=== PATIENT | female | born 1965 | race African-American/Black ===

== ENCOUNTER 2018-12-12 05:40 | Inpatient (IN) ==
[2018-11-28 09:55] LABS: Basophils % 0.8 % (0.0-0.8); Eosinophils # 0.2 10*3/uL (0.0-0.87); Eosinophils % 4.4 % (0.00-10.9); Hematocrit 39.4 VOL% (35.7-47.0); Hemoglobin 12.7 GM/DL (12.0-16.0); Immature Granulocytes % 0.2 %; Immature Granulocytes Absolute 0.01 #; Lymphocytes # 0.7 10*3/uL (1.4-4.0); Lymphocytes % 13.6 % (21.3-54.2); Mean Corpuscular HGB Conc 32.2 GM/DL (32-36); Mean Corpuscular Volume 84.4 FL (87-102); Mean Platelet Volume 10.8 FL (9.6-12.0); Monocytes % 9.1 % (1.7-12.7); Neutrophils % 71.9 % (38.7-73.9); Platelet Count 218 T/CUMM (130-400); Red Blood Count 4.67 MC/CUMM (3.8-5.5); Red Cell Distribution Width 15.3 % (9.3-17.3); White Blood Count 5.3 T/CUMM (4-12)
[2018-11-28 10:03] LABS: INR 0.9; PT Patient Result 10.1 SECS; Partial Thromboplastin Time 26.9 SECS (0-40)
[2018-11-28 10:08] LABS: Albumin 3.5 G/DL (3.4-5.0); Calcium 9.3 MG/DL (8.5-10.1); Osmolality,Calculated 283.1 MOS/KG (273-304); Total Protein 7.7 G/DL (6.4-8.3)
[2018-11-28 11:59] LABS: Apearance,Urine CLEAR (Clear); Bilirubin,Urine Negative (Negative); Blood, Urine Negative (Negative); Glucose,Urine (UA) Negative (Negative); Ketones,Urine Negative (Negative); Mucus,Urine Occasional /LPF (Occasional); Nitrite,Urine Negative (Negative); Protein,Urine Negative; RBC,Urine <1 /HPF (0-4); Squamous Epithelial Cell,Urine Occasional /HPF (0-10); Urine Color Yellow (Yellow); Urine Urobilinogen < 2.0 EU/DL (0.2-1.0)
[2018-12-12] MEDS ORDERED: VANCOMYCIN 1,000 MG VIAL ONE (06:09)
[2018-12-12] MEDS ORDERED: ceFAZolin 1,000 MG VIAL ONE (06:09)
[2018-12-12] MEDS ORDERED: BACITRACIN OINT 0.9 GM PACK TOP ONE (06:12)
[2018-12-12] MEDS ORDERED: BUPIVACAINE SPINAL 0.75% 2 ML AMP SPINAL ONE (06:21)
[2018-12-12] MEDS ORDERED: TRANEXAMIC ACID 1,000 MG/10 ML VIAL ONE (06:21)
[2018-12-12] MEDS ORDERED: ROPIVACAINE 0.5% 30 ML VIAL ONE (06:21)
[2018-12-12] MEDS ORDERED: ceFAZolin 2,000 MG in SYRINGE 1 EACH IV ONE (06:30)
[2018-12-12] MEDS ORDERED: VANCOMYCIN INJ 1,000 MG in SODIUM CHLORIDE 0.9% 250 ML IV ONE ×2 (06:30→15:28)
[2018-12-12] MEDS ORDERED: LACTATED RINGERS 1,000 ML IV SCH (07:00)
[2018-12-12] MEDS ORDERED: ALBUTEROL 2.5 MG/3 ML NEB RESP TX PRN (07:26)
[2018-12-12] MEDS ORDERED: MORPHINE 4 MG/1 ML VIAL IV PRN ×2 (07:27)
[2018-12-12] MEDS ORDERED: ZALEPLON 5 MG CAPSULE PO PRN (07:27)
[2018-12-12] MEDS ORDERED: diphenhydrAMINE CAP 25 MG CAPSULE PO PRN (07:27)
[2018-12-12] MEDS ORDERED: MAGNESIUM HYDROXIDE SUSP 30 ML UDCUP PO PRN (07:27)
[2018-12-12] MEDS ORDERED: oxyCODONE IR 5 MG TABLET PO PRN ×2 (07:27)
[2018-12-12] MEDS ORDERED: ONDANSETRON 4 MG/2 ML VIAL IV PRN ×2 (07:27→09:34)
[2018-12-12] MEDS ORDERED: ACETAMINOPHEN 1,000 MG/100 ML VIAL IV ONE (08:29)
[2018-12-12] MEDS ORDERED: LABETALOL 20 MG/4 ML SYRINGE IV ONE (09:15)
[2018-12-12] MEDS ORDERED: fentaNYL 100 MCG/2 ML VIAL ONE (09:15)
[2018-12-12] MEDS ORDERED: ONDANSETRON 4 MG/2 ML VIAL ONE (09:15)
[2018-12-12] MEDS ORDERED: GLYCOPYRROLATE 0.4 MG/2 ML VIAL ONE (09:15)
[2018-12-12] MEDS ORDERED: MIDAZOLAM 2 MG/2 ML VIAL ONE (09:15)
[2018-12-12] MEDS ORDERED: PROPOFOL 200 MG/20 ML VIAL IV ONE (09:15)
[2018-12-12] MEDS ORDERED: DEXAMETHASONE 4 MG/1 ML VIAL ONE (09:15)
[2018-12-12] MEDS ORDERED: ePHEDrine 50 MG/ML AMP ONE (09:15)
[2018-12-12] MEDS ORDERED: SODIUM CHLORIDE 0.9% 100 ML IV ONE (09:16)
[2018-12-12] MEDS ORDERED: ROCURONIUM 100 MG/10 ML VIAL IV ONE (09:16)
[2018-12-12] MEDS ORDERED: SUCCINYLCHOLINE 200 MG/10 ML VIAL ONE (09:16)
[2018-12-12] MEDS ORDERED: LACTATED RINGERS 1,000 ML IV ONE (09:16)
[2018-12-12] MEDS ORDERED: NEOSTIGMINE 10 MG/10 ML VIAL ONE (09:16)
[2018-12-12] MEDS: HYDROmorphone 2 MG/1 ML VIAL IV PRN ×3 (09:41→09:54)
[2018-12-12] MEDS: KETOROLAC 30 MG/1 ML VIAL IV SCH ×3 (10:51→21:49)
[2018-12-12] MEDS: POTASSIUM CHLORIDE 20 MEQ TABLET PO SCH (10:52)
[2018-12-12] MEDS: BUDESONIDE/FORMOTEROL 160-4.5 INHALER 6 GM INH SCH ×2 (10:52→21:49)
[2018-12-12] MEDS: DOCUSATE SODIUM 100 MG CAPSULE PO SCH ×2 (10:52→21:47)
[2018-12-12] MEDS: FUROSEMIDE 40 MG TABLET PO SCH (10:52)
[2018-12-12] MEDS: LACTATED RINGERS 1,000 ML IV SCH ×2 (11:39→17:50)
[2018-12-12] MEDS: ceFAZolin 2,000 MG in SYRINGE 1 EACH IV SCH ×2 (11:39→21:51)
[2018-12-12] MEDS: METOPROLOL TARTRATE 50 MG TABLET PO SCH (21:47)
[2018-12-13] MEDS: KETOROLAC 30 MG/1 ML VIAL IV SCH (00:01)
[2018-12-13] MEDS: LACTATED RINGERS 1,000 ML IV SCH (02:52)
[2018-12-13 05:45] LABS: Basophils % 0.2 % (0.0-0.8); Hematocrit 32.8 VOL% (35.7-47.0); Hemoglobin 10.6 GM/DL (12.0-16.0); Immature Granulocytes % 0.4 %; Immature Granulocytes Absolute 0.04 #; Lymphocytes # 0.6 10*3/uL (1.4-4.0); Lymphocytes % 5.9 % (21.3-54.2); Mean Corpuscular HGB Conc 32.3 GM/DL (32-36); Mean Corpuscular Volume 85.6 FL (87-102); Mean Platelet Volume 11.3 FL (9.6-12.0); Monocytes % 6.8 % (1.7-12.7); Neutrophils % 86.7 % (38.7-73.9); Platelet Count 216 T/CUMM (130-400); Red Blood Count 3.83 MC/CUMM (3.8-5.5); Red Cell Distribution Width 15.6 % (9.3-17.3); White Blood Count 10.1 T/CUMM (4-12)
[2018-12-13] MEDS: FONDAPARINUX 2.5 MG/0.5 ML SYRINGE SUBCUT SCH (06:11)
[2018-12-13 06:21] LABS: Osmolality,Calculated 279.4 MOS/KG (273-304)
[2018-12-13] MEDS: FUROSEMIDE 40 MG TABLET PO SCH (09:05)
[2018-12-13] MEDS: DOCUSATE SODIUM 100 MG CAPSULE PO SCH ×2 (09:05→21:01)
[2018-12-13] MEDS: LOSARTAN/HCTZ 50-12.5 MG TABLET PO SCH (09:05)
[2018-12-13] MEDS: METOPROLOL TARTRATE 50 MG TABLET PO SCH ×2 (09:05→21:01)
[2018-12-13] MEDS: BUDESONIDE/FORMOTEROL 160-4.5 INHALER 6 GM INH SCH ×2 (09:05→21:03)
[2018-12-13] MEDS: POTASSIUM CHLORIDE 20 MEQ TABLET PO SCH (09:05)
[2018-12-13] MEDS ORDERED: POTASSIUM CHLORIDE 20 MEQ TABLET PO PRN (10:24)
[2018-12-13] MEDS: CELECOXIB 200 MG CAPSULE PO SCH (14:07)
[2018-12-14] MEDS: FONDAPARINUX 2.5 MG/0.5 ML SYRINGE SUBCUT SCH (05:38)
[2018-12-14 06:23] LABS: Basophils # 0.1 10*3/uL (0.0-0.2); Basophils % 0.6 % (0.0-0.8); Eosinophils # 0.4 10*3/uL (0.0-0.87); Eosinophils % 5.1 % (0.00-10.9); Hematocrit 32.5 VOL% (35.7-47.0); Hemoglobin 10.2 GM/DL (12.0-16.0); Immature Granulocytes % 0.4 %; Immature Granulocytes Absolute 0.03 #; Lymphocytes # 0.7 10*3/uL (1.4-4.0); Lymphocytes % 8.2 % (21.3-54.2); Mean Corpuscular HGB Conc 31.4 GM/DL (32-36); Mean Corpuscular Volume 88.3 FL (87-102); Mean Platelet Volume 11.3 FL (9.6-12.0); Monocytes % 9.2 % (1.7-12.7); Neutrophils % 76.5 % (38.7-73.9); Platelet Count 214 T/CUMM (130-400); Red Blood Count 3.68 MC/CUMM (3.8-5.5); Red Cell Distribution Width 15.9 % (9.3-17.3)
[2018-12-14] MEDS: METOPROLOL TARTRATE 50 MG TABLET PO SCH (10:45)
[2018-12-14] MEDS: LOSARTAN/HCTZ 50-12.5 MG TABLET PO SCH (10:45)
[2018-12-14] MEDS: FUROSEMIDE 40 MG TABLET PO SCH (10:46)
[2018-12-14] MEDS: CELECOXIB 200 MG CAPSULE PO SCH (10:46)
[2018-12-14] MEDS: DOCUSATE SODIUM 100 MG CAPSULE PO SCH (10:46)
[2018-12-14] MEDS: POTASSIUM CHLORIDE 20 MEQ TABLET PO SCH (10:47)
[2018-12-14] MEDS: BUDESONIDE/FORMOTEROL 160-4.5 INHALER 6 GM INH SCH (10:48)
[2018-12-14 17:03] VITALS: BP 110/51
== END 2018-12-14 15:00 | disposition home or self-care (01) | DRG 302 ==
LOC: N.SDSINP 05:40 → N.OR 05:40 → N.SDSINP 07:27 → N.3E 10:12
PROVIDERS: ADMIT Orthopaedic Surgery; ATTEND Orthopaedic Surgery